=== PATIENT | female | born 1960 | race Caucasian/White ===

== ENCOUNTER 2018-08-17 06:15 | Day surgery (SDC) | payer OTHER ==
[~2018-08-17 06:15] MED LIST: CRESTOR20 MG PO; KOMBIGLYZE XR1 EAC2 PO; LEVO-T50 MCG PO; VASOTEC10 MG PO
[2018-08-17] MEDS ORDERED: ALEVE220 M1 PO (09:11)
[2018-08-17] MEDS ORDERED: ULTRACET PO (09:11)
[2018-08-17] MEDS ORDERED: DUI500 PO (09:11)
[2018-08-17] MEDS ORDERED: PERCOCET 5-3251 EACH PO (14:30)
== END 2018-08-17 15:30 | disposition home or self-care (01) ==
LOC: CIR.AMB 06:15
DX: S83.232A Complex tear of medial meniscus, current injury, left knee, initial encounter (principal); M67.362 Transient synovitis, left knee; E66.09 Other obesity due to excess calories